=== PATIENT | male | born 1960 | race Two or more races ===

== ENCOUNTER 2016-11-15 16:46 | Emergency (ER) | payer BC, OTHER ==
[~2016-11-15] VITALS: Ht 175.3 cm; Wt 64.9 kg
[~2016-11-15 16:46] MED LIST: PANT40TA2 PO; URSO300C12 PO
[2016-11-15] MEDS ORDERED: OXYC10TA49 PO (17:08)
--- NOTE | 2016-11-15 17:20 | NUR ---
Dr Erazo at the bedside for eval and exam.
[2016-11-15] MEDS ORDERED: KETOROLAC TROMETHAMINE 15 MG INJ IV ONE (17:30)
--- NOTE | 2016-11-15 17:31 | NUR ---
Pt refused having HL in place, aware.
--- NOTE | 2016-11-15 17:34 | NUR ---
Pt left ER via wheelchair for ct.
[2016-11-15 18:09] LABS: BASOPHILS # (AUTO) 0.2 K/uL (0.0-8.0); BASOPHILS % (AUTO) 0.8 % (0.0-2.0); EOSINOPHILS # (AUTO) 0.1 K/uL (0.0-0.7); EOSINOPHILS % (AUTO) 0.4 % (0.0-7.0); HEMATOCRIT 45.3 % (40-50); LYMPHOCYTES # (AUTO) 9.7 K/UL (0.8-4.8); LYMPHOCYTES % (AUTO) 46.4 % (20.5-51.5); MEAN CORPUSCULAR HEMOGLOBIN 31.5 UUG (27.0-31.0); MEAN CORPUSCULAR HGB CONC 33 g/dL (32.0-37.0); MONOCYTES # (AUTO) 1.7 K/UL (0.1-1.30); NEUTROPHILS # (AUTO) 9.4 K/UL (1.8-8.9); NEUTROPHILS % (AUTO) 44.4 % (38.5-71.5); PLATELET COUNT (AUTO) 193 K/UL (150-450); RED BLOOD CELL COUNT(AUTO) 4.77 MIL/UL (4.7-6.1)
[2016-11-15 18:10] LABS: WHITE BLOOD COUNT (AUTO) 21.1 K/UL (4.0-11.2)
[2016-11-15 18:11] LABS: CREATININE 2.2 mg/dL (0.6-1.3); POTASSIUM 4.1 mmol/L (3.5-5.1)
[2016-11-15 18:17] LABS: BILIRUBIN,DIRECT 0.2 mg/dL (0.0-0.2); BILIRUBIN,TOTAL 0.6 mg/dL (0.2-1.0); TOTAL PROTEIN, SERUM 7.7 g/dL (6.4-8.2)
[2016-11-15 18:24] LABS: BAND % (MANUAL) 10 % (0-10); LYMPHOCYTES % (MANUAL) 48 % (20-40); MONOCYTES % (MANUAL) 8 % (2-10); NEUTROPHILS % (MANUAL) 34 % (42-75)
--- NOTE | 2016-11-15 18:48 | NUR ---
Patient discharged to home in stable conditon. Written and verbal after care instructions given. Patient verbalizes understanding of instructions.
[2016-11-15 18:49] VITALS: BP 143/76
[2016-11-15 18:53] LABS: *BILIRUBIN,URIN NEGATIVE (NEGATIVE); *BLOOD, URINE 3+ (NEGATIVE); *COLOR,URINE YELLOW (YELLOW); *KETONES,URINE NEGATIVE (NEGATIVE); *UROBILINOGEN,URINE 0.2 E.U./dl (NORMAL); LEUKOCYTE ESTERASE ,URINE NEGATIVE (NEGATIVE); NITRITE, URINE NEGATIVE (NEGATIVE); PH,URINE 5.5 (5.0-8.0); UGLUCOSE NEGATIVE (NEGATIVE)
[2016-11-15 19:22] LABS: *CLARITY,URINE HAZY (CLEAR); *PROTEIN,URINE 3+ (NEGATIVE)
[2016-11-15 19:24] LABS: RBC,URINE 50-80 /HPF (0-3); SQUAMOUS EPITHELIAL CELL,UR FEW /HPF (NONE SEEN)
[2016-11-15 19:25] LABS: MUCUS,URINE MODERATE /LPF (0-FEW)
== END 2016-11-15 18:53 | disposition home or self-care (01) ==
LOC: ER 16:47
DX: N20.1 Calculus of ureter (principal)
CPT/HCPCS: 36415; 71010; 74176; 80048; 80076; 81001; 83605; 83690; 84484; 85025; 87040 ×2; 87086; 93005; 99284; A4663; 70030-TC

== ENCOUNTER 2017-01-07 22:02 | Emergency (ER) | payer OTHER ==
[~2017-01-07] VITALS: Ht 172.7 cm; Wt 72.6 kg
[~2017-01-07 22:02] MED LIST changes: +OXYC10TA49 PO; -PANT40TA2 PO; -URSO300C12 PO
--- NOTE | 2017-01-07 22:20 | NUR ---
Dr. Yadav at bedside for MSE
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
--- NOTE | 2017-01-07 22:50 | NUR ---
Xray at bedside.
--- NOTE | 2017-01-07 23:05 | NUR ---
Pt medicated for discomfort, will monitor for effects of medication. Pt resting in position of comfort for self.
--- NOTE | 2017-01-07 23:50 | NUR ---
Pt sts pain improved with medication. Pt stable for discharge per Dr. Yadav. Pt and family given ACI. Both verbalized understanding of dc instructions. Pt ambulated out of ER with steady gait and ride home.
[2017-01-08 01:25] VITALS: BP 160/95
== END 2017-01-07 23:50 | disposition home or self-care (01) ==
LOC: ER 22:03
DX: S20.219A Contusion of unspecified front wall of thorax, initial encounter (principal); V43.52XA Car driver injured in collision with other type car in traffic accident, initial encounter; Y93.89 Activity, other specified; Y92.89 Other specified places as the place of occurrence of the external cause; Y99.8 Other external cause status; S80.12XA Contusion of left lower leg, initial encounter; S80.11XA Contusion of right lower leg, initial encounter
CPT/HCPCS: 71010; 73590 ×2; 90471; 90715; 93005; 96372; 99284; J1170; Q0162; A4663

== ENCOUNTER 2017-04-19 13:03 | Emergency (ER) | payer OTHER ==
[~2017-04-19] VITALS: Ht 175.3 cm; Wt 63.5 kg
[2017-04-19] MEDS ORDERED: ALBUTEROL SULFATE 2.5 MG/3 ML NEBU NEB ONE (14:30)
[2017-04-19] MEDS ORDERED: ACETAMINOPHEN ES 500 MG TABLET PO ONE (14:30)
[2017-04-19] MEDS ORDERED: ALBUTEROL SULFATE 2.5 MG/3 ML NEBU ONE (14:49)
[2017-04-19 14:53] LABS: BASOPHILS # (AUTO) 0.1 K/uL (0.0-8.0); BASOPHILS % (AUTO) 0.4 % (0.0-2.0); EOSINOPHILS % (AUTO) 0.2 % (0.0-7.0); HEMATOCRIT 48.9 % (36.7-47.1); HEMOGLOBIN 16.3 g/dL (12.5-16.3); LYMPHOCYTES % (AUTO) 47.2 % (20.5-51.5); MEAN CORPUSCULAR HEMOGLOBIN 31.7 uug (23.8-33.4); MEAN CORPUSCULAR HGB CONC 33 g/dL (32.5-36.3); MEAN CORPUSCULAR VOLUME 94.9 fL (73.0-96.2); MONOCYTES # (AUTO) 1.9 K/uL (2.0-10.0); MONOCYTES % (AUTO) 10.1 % (0.0-11.0); NEUTROPHILS % (AUTO) 42.1 % (38.5-71.5); PLATELET COUNT (AUTO) 151 K/uL (152-348); RED BLOOD CELL COUNT(AUTO) 5.15 MIL/uL (4.06-5.63)
[2017-04-19] MEDS ORDERED: ACETAMINOPHEN ES 500 MG TABLET ONE (14:54)
[2017-04-19 15:02] LABS: BILIRUBIN,DIRECT 0.3 mg/dL (0.0-0.2); BILIRUBIN,TOTAL 0.7 mg/dL (0.2-1.0); CREATININE 1.7 mg/dL (0.6-1.3); TOTAL PROTEIN, SERUM 7.1 g/dL (6.4-8.2)
[2017-04-19] MEDS ORDERED: IV NORMAL SALINE 1000 ML BAG IV ONE (16:15)
--- NOTE | 2017-04-19 16:52 | NUR ---
LABS DRAWN EARLIER EKG/XRAYS DONE. SALINE LOCK PLACED AND 2L 0.9 NS BOLUS INFUSING W/O.
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
[2017-04-19 18:24] VITALS: BP 142/88
--- NOTE | 2017-04-20 11:00 | NUR ---
left message on answering machine requesting to have a call back to see how the patient is doing.
== END 2017-04-19 18:25 | disposition home or self-care (01) ==
LOC: ER 13:03
DX: J11.1 Influenza due to unidentified influenza virus with other respiratory manifestations (principal)
CPT/HCPCS: 36415; 70030-TC; 71045; 83605; 85025; 87040; 87400; 93005; A4663; J7030